=== PATIENT | male | born 1950 | race Caucasian/White ===

== ENCOUNTER → 2021-05-30 09:35 | Outpatient (BNVA) | payer MEDICARE, BC, SELFPAY | PROVIDERS: Visit Provider Urology | DX: C61 Malignant neoplasm of prostate (principal) | CPT/HCPCS: 99212 ==

== ENCOUNTER 2021-07-09 12:13 | Outpatient (REF) | payer MEDICARE, BC, SELFPAY ==
[2021-07-09 12:19] VITALS: BP 140/62; PULSE 93; RESP 16; TEMP 36.3; O2SAT 96
[2021-07-09 12:22] VITALS: BMI 36.3
--- NOTE | 2021-07-09 12:51 | W.PM.OPN ---
Operative Note Operative Note Date of Service: 07/09/21 Narrative: Preoperative diagnosis: prostate cancer Postoperative diagnosis: prostate cancer Procedure: 1. transrectal ultrasound measurement of prostate 2. transrectal ultrasound-guided pudendal nerve block 3. transrectal ultrasound-guided prostate biopsy 12 core Surgeon: Dr. Javid Smith Anesthetic: Local Indications for procedure: Prostate Cancer Procedure: After informed consent was verified, the patient was brought into the procedure area and lay left-hand side down on the table. Patient identity confirmed. Perioperative antibiotics confirmed. Gel was placed per rectum Ultrasound probe was placed per rectum The prostate was measured in 3 dimensions Total volume equals 25 gm There were no cystic structures and no calcifications noted and the prostate was homogeneous in nature A ultrasound-guided pudendal nerve block was performed using 10 cc of 1% lidocaine. 8 cc was placed at the base and 2 cc of the apex. A 12 core biopsy was performed with 6 cores each side. Two cores were taken at the apex, mid and base. Cores were spaced between lateral and medial. He tolerated the procedure well. Was able to ambulate to bathroom after 5 minutes. Printed instructions regarding antibiotic use and common side effects such as low-grade temperature and bleeding were given.
[2021-07-09 12:54] VITALS: BP 126/65; PULSE 77; RESP 16; O2SAT 96
== END 2021-07-09 12:14 | disposition home or self-care (01) ==
LOC: HO.MS 12:13
PROVIDERS: PCP Nurse Practitioner Family; Visit Provider Urology
PROC: (CPT 55700; principal; 2021-07-09 12:30)
DX: C61 Malignant neoplasm of prostate (principal); R97.20 Elevated prostate specific antigen [PSA]
CPT/HCPCS: 55700; 76942; 88305

== ENCOUNTER → 2021-07-16 14:02 | Outpatient (BNVA) | payer MEDICARE, BC, SELFPAY | PROVIDERS: PCP Nurse Practitioner Family; Visit Provider Urology | DX: C61 Malignant neoplasm of prostate (principal); R97.20 Elevated prostate specific antigen [PSA] | CPT/HCPCS: Q3014 ==

== ENCOUNTER → 2021-08-15 09:40 | Outpatient (BNVA) | payer MEDICARE, BC, SELFPAY | PROVIDERS: PCP Nurse Practitioner Family; Visit Provider Urology | DX: C61 Malignant neoplasm of prostate (principal) | CPT/HCPCS: 99212 ==

== ENCOUNTER → 2021-09-04 13:30 | Outpatient (BNVA) | payer MEDICARE, BC, SELFPAY | PROVIDERS: PCP Nurse Practitioner Family; Visit Provider Urology | DX: C61 Malignant neoplasm of prostate (principal) | CPT/HCPCS: 96402; J9217 ==

== ENCOUNTER 2021-09-23 08:51 | Day surgery (SDC) | payer MEDICARE, BC, SELFPAY ==
[2021-09-16 13:29] VITALS: BMI 36.3
--- NOTE | 2021-09-20 12:53 | P.CONAN_ITS ---
Documented by User: Tori Burnham NP 09/20/21 12:54 HPI - Anesthesia Eval Consult details Narrative: 70yo M for Insert Space OAR with Gold Seed Markers PMFSH Active Problems Active Problems: All Active Problems (Updated 09/16/21 @ 13:28 by Elis Mejia, RN) Elevated PSA (Acute) Prostate cancer (Acute) Past Medical History Medical History Alopecia totalis Anxiety Benign prostatic hyperplasia without lower urinary tract symptoms COVID-19 vaccine series completed Elevated cholesterol Elevated PSA Hypertension Prostate cancer Snores Surgical History Surgical History H/O colonoscopy History of total left knee replacement Hx of prostate biopsy Social History Social History Are you a primary palliative care coordinator to a significant other at home: No Do you presently have visiting nurse or other home services: No Patient Tobacco Use Status: Former Tobacco user Quit Date: 2005 Tobacco use type: Cigarette Years Smoked: 10 Use of substances other than those prescribed or required for medical reasons: No Have you been hit, kicked, punched, or otherwise hurt by someone within the past year? If so, by whom?: No Are you DNR?: No Advance Directives: Yes Advance Directives Information Provided: Yes (as above noted-will bring copy of HCP form DOS) Advance Directives on File: Yes Advance Directives Date on File: 09/23/21 Recently lost weight without trying: No Eating poorly because of decreased appetite: No Nutrition Risks: No Nutritional Risk Poor oral hygiene: No (has crowns) Meds Allergies Allergy/AdvReac Type Severity Reaction Status Date / Time No Known Allergies Allergy Verified 08/15/21 09:41 Home Medications Medication Instructions Recorded Confirmed Last Taken Type atorvastatin 10 mg tablet 10 mg PO DAILY 07/16/21 09/16/21 Unknown History citalopram 20 mg tablet 20 mg PO DAILY 07/16/21 09/16/21 09/23/21 History irbesartan 300 mg tablet 300 mg PO DAILY 07/16/21 09/16/21 Unknown History metoprolol succinate 50 mg 50 mg PO DAILY 07/16/21 09/16/21 09/23/21 History tablet,extended release 24 hr cetirizine 10 mg tablet 10 mg PO DAILY 09/16/21 09/16/21 Unknown History cholecalciferol (vitamin D3) 50 50 mcg PO DAILY 09/16/21 09/16/21 Unknown History mcg (2,000 unit) capsule (Vitamin D3) Exam Exam Date and Time: September 20, 2021 1253 Height,Weight and Vital Signs: Height 5 ft 6 in Weight 102.058 kg Assessment and Plan Assessment Anesthesia Assessment: Chart Reviewed Documented by User: Isabella Garces MD 09/23/21 10:07 [facility] Past Medical History Medical History Alopecia totalis Anxiety Benign prostatic hyperplasia without lower urinary tract symptoms COVID-19 vaccine series completed Elevated cholesterol Elevated PSA Hypertension Prostate cancer Snores Surgical History Surgical History H/O colonoscopy History of total left knee replacement Hx of prostate biopsy History of Problems with Anesthesia: No Social History Social History Are you a primary palliative care coordinator to a significant other at home: No Do you presently have visiting nurse or other home services: No Patient Tobacco Use Status: Former Tobacco user Quit Date: 2005 Tobacco use type: Cigarette Years Smoked: 10 Use of substances other than those prescribed or required for medical reasons: No Have you been hit, kicked, punched, or otherwise hurt by someone within the past year? If so, by whom?: No Are you DNR?: No Advance Directives: Yes Advance Directives Information Provided: Yes (as above noted-will bring copy of HCP form DOS) Advance Directives on File: Yes Advance Directives Date on File: 09/23/21 Recently lost weight without trying: No Eating poorly because of decreased appetite: No Nutrition Risks: No Nutritional Risk Poor oral hygiene: No (has crowns) Meds Allergies Allergy/AdvReac Type Severity Reaction Status Date / Time No Known Allergies Allergy Verified 08/15/21 09:41 Home Medications Medication Instructions Recorded Confirmed Last Taken Type atorvastatin 10 mg tablet 10 mg PO DAILY 07/16/21 09/16/21 Unknown History citalopram 20 mg tablet 20 mg PO DAILY 07/16/21 09/16/21 09/23/21 History irbesartan 300 mg tablet 300 mg PO DAILY 07/16/21 09/16/21 Unknown History metoprolol succinate 50 mg 50 mg PO DAILY 07/16/21 09/16/21 09/23/21 History tablet,extended release 24 hr cetirizine 10 mg tablet 10 mg PO DAILY 09/16/21 09/16/21 Unknown History cholecalciferol (vitamin D3) 50 50 mcg PO DAILY 09/16/21 09/16/21 Unknown History mcg (2,000 unit) capsule (Vitamin D3) Exam Airway Mallampati Class: III TM Dist: >3cm Neck ROM: Full Loose/Missing/Broken Teeth: No Heart: RRR Lungs: CTA Assessment and Plan Final Anesthetic Review History of Problems with Anesthesia: No NPO: Yes ASA Class: II Final Preanesthetic Review: Meds/Allgs Chart Reviewed, Consent Obtained/Reviewed and Anes Risks/Benef Reviewed Patient Risk: Low Procedure Risk: Low Anesthetic Plan Anesthetic Plan: GA Disposition: Standard PACU
[2021-09-23 08:52] VITALS: PULSE 54; RESP 18; TEMP 36.1; O2SAT 96
[2021-09-23 08:57] VITALS: BP 164/78
[2021-09-23] MEDS: Lactated Ringers 1,000 ML 100 ML IVCONT (09:09)
--- NOTE | 2021-09-23 13:47 | MHC.SHP ---
Pre-Procedural Eval Section A Date of Service: 09/23/21 The patient is an INPATIENT: No Changes since office visit: No Cold of Flu in the past 2 weeks, No New Medical Problems, No Changes in Medication and No Patient answered all questions The History & Physical has been completed within 30 days and I have reviewed it.: No Section B Chief Complaint: neoplasm of prostate Details of Present Illness: here for gold seed marker, SpaceOAR placement Relevant Family History (Specify if Yes): No Relevant Social History: None Present Medications: see Short Stay Collaborative assessment Medical History: No relevant PMH History of Previous Operations: Relevant previous surgery/procedure and date(s) Allergies: Allergies Allergy/AdvReac Type Severity Reaction Status Date / Time No Known Allergies Allergy Verified 08/15/21 09:41 Review of Systems Sugical H&P ROS: Negative: Constitution, Cardiovascular, Respiratory, Neurological, Psychiatric, Hem-Onc, Allergic/Immunologic, Gastrointestinal, Genitourinary, Musculoskeletal, Integumentary, Endocrine and Eyes/Ears/Nose/Throat Exam Surgical H&P Exam: Normal: HEENT, Normal: Heart, Normal: Lungs, Normal: Extremities, Normal: Abdomen, Normal: Skin and Normal: Neurological Plan Diagnosis/Plan: Unchanged ( transrectal guided space oar placement and gold seed marker) I have reviewed the history and physical and performed a pertinent physical examination on my patient. No changes have occurred unless specified.
[2021-09-23 15:06] VITALS: BP 158/86; PULSE 61; RESP 16; TEMP 36.3; O2SAT 97
[2021-09-23 15:10] VITALS: BP 166/87; PULSE 57; RESP 16; O2SAT 98
--- NOTE | 2021-09-23 15:12 | W.PM.OPN ---
Operative Note Operative Note Date of Service: 09/23/21 Narrative: Preoperative diagnosis: Prostate cancer Postoperative diagnosis: Prostate cancer Procedure: 1. Transrectal ultrasound-guided perineal gold seed placement 2. Treansrectal ultrasound-guided perineal SpaceOAR gel placement Surgeon: Dr. Javid Smith Anesthetic: Sedation Indications for procedure: Prostate Cancer Procedure: After informed consent was verified, the patient was brought into the operating room and anesthesia was performed per protocol. The patient was placed in a modified dorsal lithotomy position. Gel was placed per rectum Ultrasound probe was placed per rectum. The prostate was visualized in sagittal and transverse dimensions. Local anesthetic was infiltrated in the perineal area using 10 cc of lidocaine Gold seed markers were placed in a transperineal fashion using ultrasound guidance 3 gold seed markers placed in total. 2 on the right - 1 toward the base, the 2nd toward the apex. 1 on the left. The purpose is for triangulation. The 2nd part of the procedure was placement of SpaceOAR gel to allow consolidation for radiation delivery. The delivery needle was advanced bevel down in the midline under ultrasound guidance to the apex of the prostate. It was advanced in the plane the prostate from the rectum to the midpoint of the prostate. Location was determined using sagittal and transverse imaging. At the midpoint of the prostate 1 cc of saline was placed to confirm needle position. Second cc of saline was placed to confirm spread toward the base of the prostate. With the needle in the confirmed position 10 cc of gel mixture was injected. Good separation was seen of the rectum from the prostate space running in the midline from the base toward the apex of the prostate. Following completion of the procedure the probe was removed from the rectum. He tolerated the procedure well. He was extubated in the operating room and transferred in stable condition to the recovery area. Pathology none Drains none
[2021-09-23 15:15] VITALS: BP 175/85; PULSE 58; RESP 16; O2SAT 95
[2021-09-23 15:19] VITALS: BP 160/85; PULSE 57; RESP 16; TEMP 36.3; O2SAT 95
== END 2021-09-23 15:46 | disposition home or self-care (01) ==
PROVIDERS: PCP Nurse Practitioner Family; Visit Provider Urology
PROC: (CPT 55874; principal; 2021-09-23 11:40)
DX: C61 Malignant neoplasm of prostate (principal); R97.20 Elevated prostate specific antigen [PSA]; I10 Essential (primary) hypertension
CPT/HCPCS: 55874; 55876; A4648; C1889; J1956; J2405; J3010

== ENCOUNTER → 2021-12-31 14:42 | Outpatient (BNVA) | payer MEDICARE, BC, SELFPAY | PROVIDERS: PCP Nurse Practitioner Family; Visit Provider Urology | DX: C61 Malignant neoplasm of prostate (principal) | CPT/HCPCS: 99212 ==

== ENCOUNTER → 2022-04-08 10:48 | Outpatient (BNVA) | payer MEDICARE, BC, SELFPAY | PROVIDERS: PCP Internal Medicine; Visit Provider Urology | DX: C61 Malignant neoplasm of prostate (principal) | CPT/HCPCS: Q3014 ==

== ENCOUNTER → 2022-08-08 13:49 | Outpatient (BNVA) | payer MEDICARE, BC, SELFPAY | PROVIDERS: PCP Internal Medicine; Visit Provider Urology | DX: R97.21 Rising PSA following treatment for malignant neoplasm of prostate (principal) | CPT/HCPCS: Q3014 ==

== ENCOUNTER 2022-09-10 12:17 | Outpatient (REF) | payer MEDICARE, BC, SELFPAY ==
[2022-09-15 12:03] LABS: Testosterone, Total 175 ng/dL (250-1100)
== END 2022-09-10 12:18 | disposition home or self-care (01) ==
LOC: HO.LAB 12:17
PROVIDERS: Visit Provider Urology
DX: Z12.5 Encounter for screening for malignant neoplasm of prostate (principal); C61 Malignant neoplasm of prostate; R97.21 Rising PSA following treatment for malignant neoplasm of prostate
CPT/HCPCS: 36415; 84153; 84403; 99212

== ENCOUNTER → 2022-12-16 10:21 | Outpatient (BNVA) | payer MEDICARE, BC, SELFPAY | PROVIDERS: PCP Internal Medicine; Visit Provider Urology | DX: C61 Malignant neoplasm of prostate (principal) | CPT/HCPCS: 99212 ==

== ENCOUNTER → 2023-04-14 10:58 | Outpatient (BNVA) | payer MEDICARE, BC, SELFPAY | PROVIDERS: PCP Internal Medicine; Visit Provider Urology | DX: C61 Malignant neoplasm of prostate (principal) | CPT/HCPCS: Q3014 ==

== ENCOUNTER 2023-08-13 09:50 | Outpatient (AMB) | payer MEDICARE, BC, SELFPAY ==
--- NOTE | 2023-08-13 09:50 | MHC.OFFVIS ---
Intake Intake Visit Reasons: 4M PSA/Testosterone(set) Intake Note: Patient is Present for Telephone Follow Up For Urology Med: NONE Antibiotic Allergy:NKA Blood Thinner:NO Pharamcy:[facility] Allergies No Known Allergies Allergy (Verified 08/13/23 09:51) Medication List - Last Reconciled 08/13/23 by Javid Smith MD atorvastatin 10 mg PO DAILY cetirizine 10 mg PO DAILY cholecalciferol (vitamin D3) (Vitamin D3) 50 mcg PO DAILY citalopram 20 mg PO DAILY irbesartan 300 mg PO DAILY metoprolol succinate ER 50 mg PO DAILY metoprolol succinate ER 100 mg PO DAILY HPI HPI Comments History of Present Illness Details Dennis Mcdermott is a very pleasant male. He is a patient of Dr Espinoza. He is seen for the following urologic conditions. - prostate cancer Telemedicine Evaluation 15 min Consultation Doximity Brittany Video attempted PSA remaining low for 3nd reading. Off finasteride. Continue to follow q.4 months. PSA 05/22 7.1, 03/23 1.5, 07/24 1.9 T 153 (on finasteride), 11/24 0.9 T 100, 04/24 0.6, 08/24 0.7 T 151 08/23 Completed review with radiation oncology PSMA CT scan is associated with persistent positive activity 12-18 months after radiation. Prostate cancer:? Low volume, low risk June 2019 initial therapy active surveillance - June 2021 Grade Group 3 - initial therapy external beam radiation completed November 2021 [facility] radiation oncology with 6 month hormones Treatment - Initial therapy - EXBRT [facility] completed 11/23 with adjuvant hormones ? Prostate cancer was diagnosed?Dr Smith 06/20 rising PSA? Diagnosis was reached by?06/20 , needle biopsy, for elevated PSA, PSA at diagnosis 5.5, , size at TRUS 45gm.? The [place] grade is?June 2019 - LMB, 3+3 = 6 30%, LMM , 3+3 = 6 30%, LLA , 3+3 = 6 5%, RMM, 3+3 = 6 10%, Total volume .? TNM Classification of Malignant Tumours (TNM)?T1c.? The [place] (NCCN) risk category is?Low Risk (PSA< 10, Gl < 7, T1c) ?Group 1 with ultralow risk volume Repeat biopsy June 2021 Histologic type: Adenocarcinoma, acinar type Histologic grade: [place] score: 4+3=7 (left base medial, right apex lateral, right apex medial), 3+4=7 (left mid medial), 3+3=6 (right base lateral, right base medial, right mid lateral, right mid medial) ? % of pattern 4: 15% of the tumor - 140/1200 Grade group: 1, 2, 3 and 4 Imaging staging. 08/22 MRI left base 1.5 cm PiRADS 5 - 08/23 PET-CT [facility] - left base prostate uptake otherwise negative [facility] Medical History Prostate cancer Anxiety Snores COVID-19 vaccine series completed Elevated cholesterol Alopecia totalis Benign prostatic hyperplasia without lower urinary tract symptoms Elevated PSA Hypertension Surgical History History of total left knee replacement H/O colonoscopy Hx of prostate biopsy Social History Are you a primary career advisor to a significant other at home: No Do you presently have visiting nurse or other home services: No Patient Tobacco Use Status: Former Tobacco user Quit Date: 2005 Tobacco use type: Cigarette Years Smoked: 10 Advance Directives Date on File: 09/23/21 Review of Systems Const All systems reviewed & are unremarkable except as noted in HPI and below Reports no additional complaints Resp Reports no additional complaints GI Reports no additional complaints Reports as per HPI Musc Reports no additional complaints Physical Exam Telemedicine evaluation Appropriate responses Regular breathing rate and rhythm HEENT Head: Yes normal to inspection Ears: hearing grossly normal bilaterally Eyes General: appearance normal, both eyes and all related structures Neck Neck: Yes normal visual inspection Chest Chest palpation & inspection: normal inspection of the chest Resp Effort & Inspection: normal respiratory effort and able to speak in complete sentences Assessment & Plan Assessment & Plan (1) Prostate cancer: Comment: [place] 4 + 3 external beam radiation with 6 month hormones completed November 2021 Code(s): C61 - Malignant neoplasm of prostate Plan 4m f/u PSA Orders: Orders Prostate Specific Antigen 4 Months R97.21 - Rising PSA following treatment for malignant neoplasm of prostate Patient Instructions: Imaging studies, laboratory and physical exam results were discussed and reviewed in detail. No major barriers to patient understanding were identified. An opportunity to ask questions regarding the treatment plan was provided. All questions were answered. The patient expressed understanding and agreement with the above treatment plan. The patient is aware they should contact our office by phone for worsening of their current condition or the appearance of new urologic symptoms. Compliance is encouraged with any medications and followup testing that is ordered. It is a privilege to participate in the urologic care of your patient. If you have any questions or concerns regarding treatment for the above conditions, or other urologic issues, please do not hesitate to contact me. The office telephone contact is [phone]. This note is constructed using voice recognition software. While every effort has been made to ensure accuracy accountant budget errors may have been included. Yours sincerely, Dr Javid Smith MD, [facility] - Urology Providers of Expert, Compassionate Care for the Genitourinary System Telehealth Telehealth Location of provider rendering services: practice address Location of patient: address on file Patient Identification confirmed using: Name, : Yes Telehealth method: video Patient verbally consented to treatment: Yes Patient verbally consented to billing insurance company: Yes Patient informed of any privacy concerns related to visit: Yes Coding Level of Care Code Tele Est Pt Level 3 (35992) Diagnoses Prostate cancer C61
== END 2023-08-13 10:20 | disposition home or self-care (01) ==
LOC: HO.HUSH 09:50
PROVIDERS: PCP Internal Medicine; Visit Provider Urology
DX: C61 Malignant neoplasm of prostate (principal)
CPT/HCPCS: 99213

== ENCOUNTER → 2023-08-13 09:50 | Outpatient (BNVA) | payer MEDICARE, BC, SELFPAY | PROVIDERS: PCP Internal Medicine; Visit Provider Urology ==

== ENCOUNTER 2024-01-19 15:21 | Outpatient (AMB) | payer MEDICARE, BC, SELFPAY ==
--- NOTE | 2024-01-19 15:30 | A.OFFVIS_ITS ---
Intake Visit Reasons: 4M PSA(set) Intake Note: Patient is Present for Follow Up Urology Medication: None Antibiotic Allergies: None Blood Thinners:None Allergies No Known Allergies Allergy (Verified 08/13/23 09:51) HPI Comments Details: Dennis Mcdermott is a very pleasant male. He is a patient of Dr Espinoza. He is seen for the following urologic conditions. - prostate cancer PSA continues falling Continue Q 4 month evaluation PSA 05/22 7.1, 03/23 1.5, 07/24 1.9 T 153 (on finasteride), 11/24 0.9 T 100, 04/24 0.6, 08/24 0.7 T 151, 12/26 0.5 08/23 Completed review with radiation oncology PSMA CT scan is associated with persistent positive activity 12-18 months after radiation. Prostate cancer:? Low volume, low risk June 2019 initial therapy active surveillance - June 2021 Grade Group 3 - initial therapy external beam radiation completed November 2021 [facility] radiation oncology with 6 month hormones Treatment - Initial therapy - EXBRT [facility] completed 11/23 with adjuvant hormones ? Prostate cancer was diagnosed?Dr Smith 06/20 rising PSA? Diagnosis was reached by?06/20 , needle biopsy, for elevated PSA, PSA at diagnosis 5.5, , size at TRUS 45gm.? The [place] grade is?June 2019 - LMB, 3+3 = 6 30%, LMM , 3+3 = 6 30%, LLA , 3+3 = 6 5%, RMM, 3+3 = 6 10%, Total volume .? TNM Classification of Malignant Tumours (TNM)?T1c.? The [place] (NCCN) risk category is?Low Risk (PSA< 10, Gl < 7, T1c) ?Group 1 with ultralow risk volume Repeat biopsy June 2021 Histologic type: Adenocarcinoma, acinar type Histologic grade: Artemio score: 4+3=7 (left base medial, right apex lateral, right apex medial), 3+4=7 (left mid medial), 3+3=6 (right base lateral, right base medial, right mid lateral, right mid medial) ? % of pattern 4: 15% of the tumor - 140/1200 Grade group: 1, 2, 3 and 4 Imaging staging. 08/22 MRI left base 1.5 cm PiRADS 5 - 08/23 PET-CT [facility] - left base prostate uptake otherwise negative [facility] Medical History Prostate cancer Anxiety Snores COVID-19 vaccine series completed Elevated cholesterol Alopecia totalis Benign prostatic hyperplasia without lower urinary tract symptoms Elevated PSA Hypertension Surgical History History of total left knee replacement H/O colonoscopy Hx of prostate biopsy Social History Are you a primary assistant child care teacher to a significant other at home: No Do you presently have visiting nurse or other home services: No Patient Tobacco Use Status: Former Tobacco user Quit Date: 2005 Tobacco use type: Cigarette Years Smoked: 10 Advance Directives Date on File: 09/23/21 Review of Systems Const Denies chills and Denies fever(s) Card Reports no additional complaints and Denies syncope Resp Denies cough GI Denies abdominal pain and Denies heartburn Reports as per HPI and Denies change in libido Neuro Denies syncope Psych Denies change in libido Endo Denies change in libido Physical Exam Const General: cooperative, healthy appearing, comfortable and no acute distress Orientation/consciousness: patient oriented x3 HEENT Face and sinus: Yes normal facial exam Mouth: moist mucous membranes Neck Neck: Yes normal visual inspection, Yes full ROM and Yes trachea midline Chest Chest palpation & inspection: normal inspection of the chest Resp Effort & Inspection: normal respiratory effort, able to speak in complete sentences and no respiratory distress GI Inspection: Yes normal to inspection Back/Spine/Pelvis Cervical Spine: normal cervical lordosis Thoracic/Lumbar Spine: thoracic and lumbar spine normal to inspection Skin General skin exam: no rashes or lesions noted Neuro General: patient oriented x3, gait normal, tone normal and moves all extremities Extrem General: Yes normal to inspection and Yes capillary refill normal Assessment & Plan Assessment & Plan (1) Prostate cancer: Comment: [place] 4 + 3 external beam radiation with 6 month hormones completed November 2021 Code(s): C61 - Malignant neoplasm of prostate Category: Medical Plan 4 month follow-up Orders: Orders Prostate Specific Antigen 4 Months C61 - Malignant neoplasm of prostate Patient Instructions: Imaging studies, laboratory and physical exam results were discussed and reviewed in detail. No major barriers to patient understanding were identified. An opportunity to ask questions regarding the treatment plan was provided. All questions were answered. The patient expressed understanding and agreement with the above treatment plan. The patient is aware they should contact our office by phone for worsening of their current condition or the appearance of new urologic symptoms. Compliance is encouraged with any medications and followup testing that is ordered. It is a privilege to participate in the urologic care of your patient. If you have any questions or concerns regarding treatment for the above conditions, or other urologic issues, please do not hesitate to contact me. The office telephone contact is [phone]. This note is constructed using voice recognition software. While every effort has been made to ensure accuracy sand cutter operator errors may have been included. Yours sincerely, Dr Javid Smith MD, [facility] - Urology Providers of Expert, Compassionate Care for the Genitourinary System
== END 2024-01-19 16:06 | disposition home or self-care (01) ==
PROVIDERS: PCP Internal Medicine; Visit Provider Urology
DX: C61 Malignant neoplasm of prostate (principal)
CPT/HCPCS: 99213

== ENCOUNTER → 2024-01-19 15:21 | Outpatient (BNVA) | payer MEDICARE, BC, SELFPAY | PROVIDERS: PCP Internal Medicine; Visit Provider Urology | DX: C61 Malignant neoplasm of prostate (principal); N40.0 Benign prostatic hyperplasia without lower urinary tract symptoms; R97.20 Elevated prostate specific antigen [PSA]; Z92.3 Personal history of irradiation | CPT/HCPCS: 99212 ==

== ENCOUNTER 2024-05-17 11:40 | Outpatient (AMB) | payer MEDICARE, BC, SELFPAY ==
--- NOTE | 2024-05-17 11:40 | MHC.OFFVIS ---
Intake Visit Reasons: 4M PSA(set) Intake Note: Patient is Present for Telephone Follow Up PSA Urology Med:None Antibiotic Allergy: None Blood Thinner: None Allergies No Known Allergies Allergy (Verified 05/17/24 11:41) Medication List - Last Reconciled 05/17/24 by Javid Smith MD atorvastatin 10 mg PO DAILY cetirizine 10 mg PO DAILY cholecalciferol (vitamin D3) (Vitamin D3) 50 mcg PO DAILY citalopram 20 mg PO DAILY irbesartan 300 mg PO DAILY metoprolol succinate ER 50 mg PO DAILY metoprolol succinate ER 100 mg PO DAILY HPI Comments Details: Dennis Mcdermott is a very pleasant male. He is a patient of Dr Espinoza. He is seen for the following urologic conditions. - prostate cancer Telemedicine Evaluation 15 min Consultation Doximity Brittany Video PSA continues falling Six-month follow-up Mild urgency PSA 05/22 7.1, 03/23 1.5, 07/24 1.9 T 153 (on finasteride), 11/24 0.9 T 100, 04/24 0.6, 08/24 0.7 T 151, 12/26 0.5, 05/25 0.3 08/23 Completed review with radiation oncology PSMA CT scan is associated with persistent positive activity 12-18 months after radiation. Prostate cancer:? Low volume, low risk June 2019 initial therapy active surveillance - June 2021 Grade Group 3 - initial therapy external beam radiation completed November 2021 [facility] radiation oncology with 6 month hormones Treatment - Initial therapy - EXBRT [facility] completed 11/23 with adjuvant hormones ? Prostate cancer was diagnosed?Dr Smith 06/20 rising PSA? Diagnosis was reached by?06/20 , needle biopsy, for elevated PSA, PSA at diagnosis 5.5, , size at TRUS 45gm.? The [place] grade is?June 2019 - LMB, 3+3 = 6 30%, LMM , 3+3 = 6 30%, LLA , 3+3 = 6 5%, RMM, 3+3 = 6 10%, Total volume .? TNM Classification of Malignant Tumours (TNM)?T1c.? The [place] (NCCN) risk category is?Low Risk (PSA< 10, Gl < 7, T1c) ?Group 1 with ultralow risk volume Repeat biopsy June 2021 Histologic type: Adenocarcinoma, acinar type Histologic grade: Artemio score: 4+3=7 (left base medial, right apex lateral, right apex medial), 3+4=7 (left mid medial), 3+3=6 (right base lateral, right base medial, right mid lateral, right mid medial) ? % of pattern 4: 15% of the tumor - 140/1200 Grade group: 1, 2, 3 and 4 Imaging staging. 08/22 MRI left base 1.5 cm PiRADS 5 - 08/23 PET-CT PSMA - left base prostate uptake otherwise negative PFS Medical History Prostate cancer Anxiety Snores COVID-19 vaccine series completed Elevated cholesterol Alopecia totalis Benign prostatic hyperplasia without lower urinary tract symptoms Elevated PSA Hypertension Surgical History History of total left knee replacement H/O colonoscopy Hx of prostate biopsy Social History Are you a primary customer care associate to a significant other at home: No Do you presently have visiting nurse or other home services: No Patient Tobacco Use Status: Former Tobacco user Tobacco use type: Cigarette Years Smoked: 10 Advance Directives Date on File: 09/23/21 Review of Systems Const All systems reviewed & are unremarkable except as noted in HPI and below Reports no additional complaints Resp Reports no additional complaints GI Reports no additional complaints Reports as per HPI Musc Reports no additional complaints Physical Exam Telemedicine evaluation Appropriate responses Regular breathing rate and rhythm HEENT Head: Yes normal to inspection Ears: hearing grossly normal bilaterally Eyes General: appearance normal, both eyes and all related structures Neck Neck: Yes normal visual inspection Chest Chest palpation & inspection: normal inspection of the chest Resp Effort & Inspection: normal respiratory effort and able to speak in complete sentences Telehealth Telehealth Location of provider rendering services: practice address Location of patient: address on file Patient Identification confirmed using: Name, : Yes Telehealth method: video Patient verbally consented to treatment: Yes Patient verbally consented to billing insurance company: Yes Patient informed of any privacy concerns related to visit: Yes Assessment & Plan Assessment & Plan (1) Prostate cancer: Comment: Artemio 4 + 3 external beam radiation with 6 month hormones completed November 2021 Code(s): C61 - Malignant neoplasm of prostate Category: Medical Plan Six-month follow-up PSA Orders: Orders Prostate Specific Antigen 6 Months R97.21 - Rising PSA following treatment for malignant neoplasm of prostate Patient Instructions: Imaging studies, laboratory and physical exam results were discussed and reviewed in detail. No major barriers to patient understanding were identified. An opportunity to ask questions regarding the treatment plan was provided. All questions were answered. The patient expressed understanding and agreement with the above treatment plan. The patient is aware they should contact our office by phone for worsening of their current condition or the appearance of new urologic symptoms. Compliance is encouraged with any medications and followup testing that is ordered. It is a privilege to participate in the urologic care of your patient. If you have any questions or concerns regarding treatment for the above conditions, or other urologic issues, please do not hesitate to contact me. The office telephone contact is [phone]. This note is constructed using voice recognition software. While every effort has been made to ensure accuracy health and safety technician errors may have been included. Yours sincerely, Dr Javid Smith MD, HANNY [facility] - Urology Providers of Expert, Compassionate Care for the Genitourinary System Coding Level of Care Code Tele Est Pt Level 3 (43948) Diagnoses Prostate cancer C61
== END 2024-05-17 12:52 | disposition home or self-care (01) ==
LOC: HO.HUSH 11:40
PROVIDERS: PCP Internal Medicine; Visit Provider Urology
DX: C61 Malignant neoplasm of prostate (principal)
CPT/HCPCS: 99213

== ENCOUNTER → 2024-05-17 11:40 | Outpatient (BNVA) | payer MEDICARE, BC, SELFPAY | PROVIDERS: PCP Internal Medicine; Visit Provider Urology ==

== ENCOUNTER 2024-12-20 10:20 | Outpatient (AMB) | payer MEDICARE, BC, SELFPAY ==
--- NOTE | 2024-12-20 10:32 | A.OFFVIS_ITS ---
Intake Visit Reasons: 6m/PSA(set) Intake Note: Patient presents today for follow up on: psa results Urology Med:None Antibiotic Allergy: None Blood Thinner: None Sample Sewer Required: No Accompanied by: Unknown Allergies No Known Allergies Allergy (Verified 12/20/24 10:43) HPI Comments Details: Dennis Mcdermott is a very pleasant male. He is a patient of Dr Espinoza. He is seen for the following urologic conditions. - prostate cancer PSA showing good biochemical control Interval surveillance q.6 months for 5 years Minimal urgency Good urinary control PSA 05/22 7.1, 03/23 1.5, 07/24 1.9 T 153 (on finasteride), 11/24 0.9 T 100, 04/24 0.6, 08/24 0.7 T 151, 12/26 0.5, 05/25 0.3, 12/[address] scan is associated with persistent positive activity 12-18 months after radiation. Prostate cancer:? Low volume, low risk June 2019 initial therapy active surveillance - June 2021 Grade Group 3 - initial therapy external beam radiation completed November 2021 [facility] radiation oncology with 6 month hormones Treatment - Initial therapy - EXBRT [facility] completed 11/23 with adjuvant hormones ? Prostate cancer was diagnosed?Dr Smith 06/20 rising PSA? Diagnosis was reached by?06/20 , needle biopsy, for elevated PSA, PSA at diagnosis 5.5, , size at TRUS 45gm.? The Artemio grade is?June 2019 - LMB, 3+3 = 6 30%, LMM , 3+3 = 6 30%, LLA , 3+3 = 6 5%, RMM, 3+3 = 6 10%, Total volume .? TNM Classification of Malignant Tumours (TNM)?T1c.? The [place] (NCCN) risk category is?Low Risk (PSA< 10, Gl < 7, T1c) ?Group 1 with ultralow risk volume Repeat biopsy June 2021 Histologic type: Adenocarcinoma, acinar type Histologic grade: [place] score: 4+3=7 (left base medial, right apex lateral, right apex medial), 3+4=7 (left mid medial), 3+3=6 (right base lateral, right base medial, right mid lateral, right mid medial) ? % of pattern 4: 15% of the tumor - 140/1200 Grade group: 1, 2, 3 and 4 Imaging staging. 08/22 MRI left base 1.5 cm PiRADS 5 - 08/23 PET-CT PSMA - left base prostate uptake otherwise negative [facility] Medical History (Updated 12/20/24 @ 10:52 by Javid Smith MD) Rising PSA following treatment for malignant neoplasm of prostate Prostate cancer Anxiety Snores COVID-19 vaccine series completed Elevated cholesterol Alopecia totalis Benign prostatic hyperplasia without lower urinary tract symptoms Elevated PSA Hypertension Surgical History History of total left knee replacement H/O colonoscopy Hx of prostate biopsy Social History Are you a primary child care center assistant director to a significant other at home: No Do you presently have visiting nurse or other home services: No Patient Tobacco Use Status: Former Tobacco user Tobacco use type: Cigarette Years Smoked: 10 Advance Directives Date on File: 09/23/21 Review of Systems Const Denies chills and Denies fever(s) Card Reports no additional complaints and Denies syncope Resp Denies cough GI Denies abdominal pain and Denies heartburn Reports as per HPI and Denies change in libido Neuro Denies syncope Psych Denies change in libido Endo Denies change in libido Physical Exam Const General: cooperative, healthy appearing, comfortable and no acute distress Orientation/consciousness: patient oriented x3 HEENT Face and sinus: Yes normal facial exam Mouth: moist mucous membranes Neck Neck: Yes normal visual inspection, Yes full ROM and Yes trachea midline Chest Chest palpation & inspection: normal inspection of the chest Resp Effort & Inspection: normal respiratory effort, able to speak in complete sentences and no respiratory distress GI Inspection: Yes normal to inspection Back/Spine/Pelvis Cervical Spine: normal cervical lordosis Thoracic/Lumbar Spine: thoracic and lumbar spine normal to inspection Skin General skin exam: no rashes or lesions noted Neuro General: patient oriented x3, gait normal, tone normal and moves all extremities Extrem General: Yes normal to inspection and Yes capillary refill normal Assessment & Plan Assessment & Plan (1) Prostate cancer: Comment: Artemio 4 + 3 external beam radiation with 6 month hormones completed November 2021 Code(s): C61 - Malignant neoplasm of prostate Category: Medical Plan Six-month follow-up PSA tele Orders: Orders Prostate Specific Antigen 6 Months C61 - Malignant neoplasm of prostate Patient Instructions: This note is constructed using voice recognition software. While every effort has been made to ensure accuracy paper finisher errors may have been included. Imaging studies, laboratory and physical exam results were discussed and reviewed in detail. No major barriers to patient understanding were identified. An opportunity to ask questions regarding the treatment plan was provided. All questions were answered. The patient expressed understanding and agreement with the above treatment plan. The patient is aware they should contact our office by phone for worsening of their current condition or the appearance of new urologic symptoms. Compliance is encouraged with any medications and followup testing that is ordered. It is a privilege to participate in the urologic care of your patient. If you have any questions or concerns regarding treatment for the above conditions, or other urologic issues, please do not hesitate to contact me. The office telephone contact is [phone]. Sincerely, Dr Javid Smith MD, HANNY [facility] - Urology Compassionate Specialist Care for the Genitourinary System Coding Level of Care Code Est Pt Level 3 (92452) Complex EM visit Add On G2211 Diagnoses Prostate cancer C61
--- OUTSIDE RECORDS SUMMARY | 2024-12-20 11:19 | XMS_ITS | Encounter Summary ---
Author Organization [facility] Address [address] [place] [address] Care Team Providers Care Research And Insights Executive Name Role Phone Joana Negro MD Unavailable Jennie Flores RN Unavailable [phone] [facility], Hans Garcia MD Unavailable [phone] Joana Negro MD Primary Care Provider [phone] Harshad Espinoza MD Primary Care Provider Encounter Details Date Type Department Care Team (Late st Contact Info) Description 10/18/2018 Scanned Document [facility] 85 [facility] [address] [place] [address] Ibeth Arellano, DANIELITO 85 [facility] [address] [place] [address] Social History Tobacco Use Types Packs/Day Years Used Date Smoking Tobacco: Former Smokeless Tobacco: Never Alcohol Use Standard Drinks/Week Comments Yes 3 (1 standard drink = 0.6 oz pur e alcohol) daily ETOH, 3-4 shots Sex and Gender Information Value Date Recorded Sex Assigned at Male 08/11/2024 10:06 AM EDT Gender Identity Male 08/11/2024 10:06 AM EDT Sexual Orientation Heterosexual (straight) 08/11 10:06 AM EDT documented as of this encounter Plan of Treatment Not on file documented as of this encounter Visit Diagnoses Not on filedocumented in this encounter Care Teams Research And Insights Executive Relationship Specialty Start Date End Date Joana Negro MD [address] [place] [address] PCP - General 05/24/19 04/06/22 Harshad Espinoza MD [address] [place] [address] PCP - General Internal Medicine 04/07/22 Joana Negro MD [address] [facility]?? [address] [place] [address] 08/25/18 Jennie Flores, RN [address] [place] [address] Registered Nurse 09/09/18 [facility] [address] [address] Hepatology 09/09/18 documented as of this encounter
--- OUTSIDE RECORDS SUMMARY | 2024-12-20 11:19 | XMS_ITS ---
Author Name [facility] Organization Unknown History of Medication Use Medication Directions Dispensed Refills Start Date End Date Stat us finasteride (PROSCAR) 5 MG tablet Take 5 mg by mouth daily. active metoPROLOL TARTRATE (LOPRESSOR) 100 MG tablet Take 100 mg by mouth 2 (two) times a day. active atorvastatin (LIPITOR) 10 MG tablet Take 1 tablet (10 mg total) by mouth. 02/19/2022 08/24/2023 aborted irbesartan (AVAPRO) 300 MG tablet Take 300 mg by mouth daily. active metoPROLOL SUCCINATE (TOPROL-XL) 100 MG 24 hr tablet Take 1 tablet (100 mg total) by mouth. 01/06/2022 08/24/2023 aborted Problems Problem Status Onset Date Problem Type Date of Resoluti on Source Elevated LFTs active 2018-12-06 ProblemAct [facility] T Immunizations Vaccine Date Source Lot Number Status Hepatitis B Adjuvanted, 2 Dose 09/30/2022 [facility] [id number] completed Hepatitis B Adjuvanted, 2 Dose 08/25/2022 [facility] [id number] completed
--- OUTSIDE RECORDS SUMMARY | 2024-12-20 11:19 | XMS_ITS | Encounter Summary ---
Author Organization [facility] Address [address] [place] [address] Care Team Providers Care Steam Plant Control Room Operator Name Role Phone Joana Negro MD Unavailable Jennie Flores RN Unavailable [phone] [facility], Hans Garcia MD Unavailable [phone] Harshad Espinoza MD Primary Care Provider [phone] Encounter Details Date Type Department Care Team (Late st Contact Info) Description 04/08/2022 Scanned Document [facility] [address] [facility] [address] [place] [address] Provider, Tay, [address] [place] [address] Social History Tobacco Use Types Packs/Day Years [...] Orientation Heterosexual (straight) 08/11 10:06 AM EDT COVID-19 Exposure Response Date Recorded In the last 10 days, have yo u been in contact with someone who was confirmed or suspected to have Coronavirus/COVID-19? No / Unsure 04/07/2022 11:28 AM EDT documented as of this encounter Plan of Treatment Not on file documented as of this encounter Visit Diagnoses Not on filedocumented in this encounter Care Teams Steam Plant Control Room Operator Relationship Specialty Start Date End Date Harshad Espinoza MD [address] [place] [address] PCP - General Internal Medicine 04/07/22 Joana Negro MD [address] [place] [address]?? [address] [place] [address] 08/25/18 Jennie Flores, RN [address] [place] [address] Registered Nurse 09/09/18 [facility] [address] [address] Hepatology 09/09/18 documented as of this encounter
--- OUTSIDE RECORDS SUMMARY | 2024-12-20 11:19 | XMS_ITS | Encounter Summary ---
Author Organization [facility] Address [address] [place] [address] Care Team Providers Care Crushing Foreman Name Role Phone Joana Negro MD Unavailable Jennie Flores RN Unavailable [phone] [facility], Hans Garcia MD Unavailable [phone] Joana Negro MD Primary Care Provider [phone] Harshad Espinoza MD Primary Care Provider Reason for Visit * Reason Comments Appointment Encounter Details Date Type Department Care Team ([facility] st Contact Info) Description 08/28/2020 Telephone [facility] [address] [address] Kacie Montaño MA [address] [id number] Appointment Social History Tobacco Use Types Packs/Day Years [...] AM EDT documented as of this encounter Miscellaneous Notes * Telephone Encounter - Kacie Montaño MA - 08/28/2020 1:31 PM EDT Patient's called to let us know that she canceled her husbands appointment on 09/03 due to increase COVID 19 cases they don't feel comfortable going places , she will call us when he is ready to be seen. If you have further questions , please call them at [phone] documented in this encounter Plan of Treatment Not on file documented as of this encounter Visit Diagnoses Not on filedocumented in this encounter Care Teams Crushing Foreman Relationship Specialty Start Date End Date Joana Negro MD [address] [place] [address]?? [address] [place] [address] PCP - General 05/24/19 04/06/22 Harshad Espinoza MD [address] [place] [address] PCP - General Internal Medicine 04/07/22 Joana Negro MD [address] [place] [address]?? [address] [place] [address] 08/25/18 Jennie Flores RN [address] [place] [address] Registered Nurse 09/09/18 [facility] [address] [address] Hepatology 09/09/18 documented as of this encounter
--- OUTSIDE RECORDS SUMMARY | 2024-12-20 11:19 | XMS_ITS | Encounter Summary ---
Author Organization [facility] Address [address] [place] [address] Care Team Providers Care Returned Materials Inspector Name Role Phone Joana Negro MD Unavailable Jennie Flores RN Unavailable [phone] [facility], Hans Garcia MD Unavailable [phone] Joana Negro MD Primary Care Provider [phone] Harshad Espinoza MD Primary Care Provider Encounter Details Date Type Department Care Team (Late st Contact Info) Description 10/07/2018 Telephone [facility] [address] [address] Monika [place], [place] 85 [place] [address] Social History Tobacco Use Types Packs/Day Years [...] on filedocumented in this encounter Care Teams Returned Materials Inspector Relationship Specialty Start Date End Date Joana Negro MD [address] [place] [address] PCP - General 05/24/19 04/06/22 Harshad Espinoza MD [address] [place] [address] PCP - General Internal Medicine 04/07/22 Joana Negro MD 701 [facility]?? [address] [place] [address] 08/25/18 Jennie Flores, RN [address] [place] [address] Registered Nurse 09/09/18 [facility] [address] [address] Hepatology 09/09/18 documented as of this encounter
--- OUTSIDE RECORDS SUMMARY | 2024-12-20 11:19 | XMS_ITS | Encounter Summary ---
Author Organization [facility] Address [address] [place] [address] Care Team Providers Care Bellhop Captain Name Role Phone Joana Negro MD Unavailable Jennie Flores RN Unavailable [phone] Hans hoover MD Unavailable [phone] Joana Negro MD Primary Care Provider [phone] Harshad Espinoza MD Primary Care Provider Encounter Details Date Type Department Care Team (Late st Contact Info) Description 08/11/2019 Scanned Document [facility] 85 [facility] [address] [place] [address] Hans Luna MD [address] [address] Social History Tobacco Use Types Packs/Day Years [...] on filedocumented in this encounter Care Teams Bellhop Captain Relationship Specialty Start Date End Date Joana Negro MD [address] [place] [address] PCP - General 05/24/19 04/06/22 Harshad Espinoza MD [address] [place] [address] PCP - General Internal Medicine 04/07/22 Joana Negro MD 701 [facility]?? [address] [place] [address] 08/25/18 Jennie Flores, RN [address] [place] [address] Registered Nurse 09/09/18 [facility] [address] [address] Hepatology 09/09/18 documented as of this encounter
--- OUTSIDE RECORDS SUMMARY | 2024-12-20 11:19 | XMS_ITS | Encounter Summary ---
Author Organization [facility] Address [address] [place] [address] Care Team Providers Care General Merchandise Manager Name Role Phone Joana Negro MD Unavailable Jennie Flores RN Unavailable [phone] [facility], Hans Garcia MD Unavailable [phone] Joana Negro MD Primary Care Provider [phone] Harshad Espinoza MD Primary Care Provider Encounter Details Date Type Department Care Team (Late st Contact Info) Description 08/26/2018 Scanned Document [facility] [address] [place] [phone] Maria E [place], [place] [address] [phone] Social History Tobacco Use Types Packs/Day Years [...] on filedocumented in this encounter Care Teams General Merchandise Manager Relationship Specialty Start Date End Date Joana Negro MD [address] [place] [address] PCP - General 05/24/19 04/06/22 Harshad Espinoza MD [address] [place] [address] PCP - General Internal Medicine 04/07/22 Joana Ngero MD [address] [place] [address] 08/25/18 Jennie Flores, RN [address] [place] [address] Registered Nurse 09/09/18 [facility] [address] [address] Hepatology 09/09/18 documented as of this encounter
--- OUTSIDE RECORDS SUMMARY | 2024-12-20 11:19 | XMS_ITS | Encounter Summary ---
Author Organization [facility] Address [address] [place] [address] Care Team Providers Care Board Handler Name Role Phone Joana Negro MD Unavailable Jennie Flores RN Unavailable [phone] [facility], Hans Garcia MD Unavailable [phone] Harshad Espinoza MD Primary Care Provider Encounter Details Date Type Department Care Team (Late st Contact Info) Description 08/25/2023 Scanned Document [facility] [address] [address] Emily Gonzalez [place] [address] [phone] Social History Tobacco Use Types Packs/Day Years [...] on filedocumented in this encounter Care Teams Board Handler Relationship Specialty Start Date End Date Harshad Espinoza MD [address] [place] [address] PCP - General Internal Medicine 04/07/22 Joana Negro MD [address] [place] [address]?? [address] [place] [address] 08/25/18 Jennie Flores RN [address] [place] [address] Registered Nurse 09/09/18 [facility], Hans Garcia MD [address] [address] Hepatology 09/09/18 documented as of this encounter
--- OUTSIDE RECORDS SUMMARY | 2024-12-20 11:19 | XMS_ITS | Encounter Summary ---
Author Organization [facility] Address [address] [place] [address] Care Team Providers Care Weight Loss Physician Name Role Phone Joana Negro MD Unavailable Jennie Flores RN Unavailable [phone] [facility], Hans Garcia MD Unavailable [phone] Joana Negro MD Primary Care Provider [phone] Harshad Espinoza MD Primary Care Provider Encounter Details Date Type Department Care Team (Late st Contact Info) Description 09/07/2018 Scanned Document [facility] 85 [facility] [address] [place] [address] Ibeth Arellano, DANIELITO 85 [facility] [address] [place] [address] Social History Tobacco Use Types Packs/Day Years [...] on filedocumented in this encounter Care Teams Weight Loss Physician Relationship Specialty Start Date End Date Joana Negro MD [address] [place] [address] PCP - General 05/24/19 04/06/22 Harshad Espinoza MD [address] [place] [address] PCP - General Internal Medicine 04/07/22 Joana Negro MD [address] [facility] [place] [address] 08/25/18 Jennie Flores, RN [address] [place] [address] Registered Nurse 09/09/18 [facility] [address] [address] Hepatology 09/09/18 documented as of this encounter
== END 2024-12-20 10:56 | disposition home or self-care (01) ==
PROVIDERS: PCP Internal Medicine; Visit Provider Urology
DX: C61 Malignant neoplasm of prostate (principal)
CPT/HCPCS: 99213; G2211

== ENCOUNTER → 2024-12-20 10:20 | Outpatient (BNVA) | payer MEDICARE, BC, SELFPAY | PROVIDERS: PCP Internal Medicine; Visit Provider Urology | DX: C61 Malignant neoplasm of prostate (principal) | CPT/HCPCS: 99212 ==

== ENCOUNTER 2025-06-20 10:13 | Outpatient (AMB) | payer MEDICARE, BC, SELFPAY ==
--- NOTE | 2025-06-20 10:13 | A.OFFVIS_ITS ---
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 He is a patient of Dr Diego. He is seen for the following urologic conditions. - prostate cancer Telemedicine Evaluation 15 min Consultation [employer] Brittany Video PSA showing good biochemical control Interval surveillance q.6 months for 5 years Minimal urgency Good urinary control PSA 05/22 7.1, 03/23 1.5, 07/24 1.9 T 153 (on finasteride), 11/24 0.9 T 100, 04/24 0.6, 08/24 0.7 T 151, 12/26 0.5, 05/25 0.3, 12/27 0.4, 06/[address] scan is associated with persistent positive activity 12-18 months after radiation. Prostate cancer:? Low volume, low risk June 2019 initial therapy active surveillance - June 2021 Grade Group 3 - initial therapy external beam radiation completed November 2021 [facility] radiation oncology with 6 month hormones Treatment - Initial therapy - EXBRT [facility] completed 11/23 with adjuvant hormones ? Prostate cancer was diagnosed?Dr Smith 06/20 rising PSA? Diagnosis was reached by?06/20 , needle biopsy, for elevated PSA, PSA at diagnosis 5.5, , size at TRUS 45gm.? The [place] grade is?June 2019 - LMB, 3+3 = 6 30%, LMM , 3+3 = 6 30%, LLA , 3+3 = 6 5%, RMM, 3+3 = 6 10%, Total volume .? TNM Classification of Malignant Tumours (TNM)?T1c.? The [place] (NCCN) risk category is?Low Risk (PSA< 10, Gl < 7, T1c) ?Group 1 with ultralow risk volume Repeat biopsy June 2021 Histologic type: Adenocarcinoma, acinar type Histologic grade: [place] score: 4+3=7 (left base medial, right apex lateral, right apex medial), 3+4=7 (left mid medial), 3+3=6 (right base lateral, right base medial, right mid lateral, right mid medial) ? % of pattern 4: 15% of the tumor - 140/1200 Grade group: 1, 2, 3 and 4 Imaging staging. 08/22 MRI left base 1.5 cm PiRADS 5 - 08/23 PET-CT PSMA - left base prostate uptake otherwise negative [facility] Medical History (Updated 12/20/24 @ 10:52 by Javid Smith MD) Rising PSA following treatment for malignant neoplasm of prostate Prostate cancer Anxiety Snores COVID-19 vaccine series completed Elevated cholesterol Alopecia totalis Benign prostatic hyperplasia without lower urinary tract symptoms Elevated PSA Hypertension Surgical History History of total left knee replacement H/O colonoscopy Hx of prostate biopsy Social History Are you a primary medical care administrator to a significant other at home: No Do you presently have visiting nurse or other home services: No Patient Tobacco Use Status: Former Tobacco user Tobacco use type: Cigarette Years Smoked: 10 Advance Directives Date on File: 09/23/21 Review of Systems Const All systems reviewed & are unremarkable except as noted in HPI and below Reports no additional complaints Resp Reports no additional complaints GI Reports no additional complaints Reports as per HPI Musc Reports no additional complaints Physical Exam Telemedicine evaluation Appropriate responses Regular breathing rate and rhythm HEENT Head: Yes normal to inspection Ears: hearing grossly normal bilaterally Eyes General: appearance normal, both eyes and all related structures Neck Neck: Yes normal visual inspection Chest Chest palpation & inspection: normal inspection of the chest Resp Effort & Inspection: normal respiratory effort and able to speak in complete sentences Telehealth Telehealth [facility]health [facility] Location of provider rendering services: practice address Location of patient: address on file Patient Identification confirmed using: Name, : Yes Telehealth method: video Patient verbally consented to treatment: Yes Patient verbally consented to billing insurance company: Yes Patient informed of any privacy concerns related to visit: Yes Minutes spent on Phone/Video with Pt.: 15 Assessment & Plan Assessment & Plan (1) Prostate cancer: Comment: Artemio 4 + 3 external beam radiation with 6 month hormones completed November 2021 Code(s): C61 - Malignant neoplasm of prostate Category: Medical Plan Six-month follow-up PSA office Orders: Orders Prostate Specific Antigen 6 Months C61 - Malignant neoplasm of prostate Patient Instructions: This note is constructed using voice recognition software. While every effort has been made to ensure accuracy stitchdown thread laster errors may have been included. Imaging studies, laboratory and physical exam results were discussed and reviewed in detail. No major barriers to patient understanding were identified. An opportunity to ask questions regarding the treatment plan was provided. All questions were answered. The patient expressed understanding and agreement with the above treatment plan. The patient is aware they should contact our office by phone for worsening of their current condition or the appearance of new urologic symptoms. Compliance is encouraged with any medications and followup testing that is ordered. It is a privilege to participate in the urologic care of your patient. If you have any questions or concerns regarding treatment for the above conditions, or other urologic issues, please do not hesitate to contact me. The office telephone contact is [phone]. Sincerely, Dr Javid Smith MD, HANNY [facility] - Urology Compassionate Specialist Care for the Genitourinary System Coding Level of Care Code Tele Est Pt Level 3 (55451) Complex EM visit Add On G2211 Diagnoses Prostate cancer C61
--- OUTSIDE RECORDS SUMMARY | 2025-06-20 11:29 | XMS_ITS | Clinical Summary ---
Author Organization [facility] Address [address] [place] [address] Care Team Providers Care Attorney General Name Role Phone Joana Negro MD Unavailable Jennie Flores RN Unavailable [phone] [facility] Un[facility] [phone] Harshad Espinoza MD Primary Care Provider [phone] Allergies Active Allergy Reactions Criticality Noted Date Comments Lisinopril Cough Low 08/25/2018 Medications citalopram (CeleXA) 20 MG tablet Take 1 tablet (20 mg total) by mouth daily. 5 06/21/2018 Active cholecalciferol (VITAMIN D3) 1000 units tablet Take 1 tablet (1,000 Units total) by mouth daily. Active cetirizine (ZyrTEC) 10 MG tablet Take 1 tablet (10 mg total) by mouth daily. Active aspirin enteric coated (ECOTRIN LOW STRENGTH) 81 MG EC tablet Take 1 tablet (81 mg total) by mouth daily. Active finasteride (PROSCAR) 5 MG tablet Take 1 tablet (5 mg total) by mouth daily. Active irbesartan (AVAPRO) 300 MG tablet Take 1 tablet (300 mg total) by mouth daily. Active metoPROLOL TARTRATE (LOPRESSOR) 100 MG tablet Take 1 tablet (100 mg total) by mouth 2 (two) times a day. Active atorvastatin (LIPITOR) 10 MG tablet Take 1 tablet (10 mg total) by mouth daily. 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 Discussed the importance of both weight loss and the need for complete sobriety. I am reassured that Fibrosis has likely not progressed since 2018. Discussed the fat in the liver can cause acceleration of disease and progress to cirrhosis. Would check FIB4 through PCP every year. Continue to monitor LFT's annually. Continue aggressive management of metabolic syndrome. Would benefit from [id number] he is still trying to access. Discussed the role of liver biopsy though at this point I do not think the small risks would warrant one. Received vaccination to HBV. MASLD increase CV risk. Would not use resmetiron May consider adding naltrexone to curb alcohol use. Goal is to lose at least 10# then obtain repeat LFT's and CBC to estimate FIB4- this should be checked annually. Discussed that with modest weight loss of 5% steatosis can improve and with 10% weight loss fibrosis can begin to regress. Repeat Fibroscan every 1-2 years. Assessment & Plan (08/24/2023 11:32 AM EDT): MASLD without evidence of advanced liver disease. Will repeat Fibroscan in 2024. May check ELF next visit. Discussed the need for weight loss to reduce the risk of progression of liver disease and may consider using semaglutide to help with glucose control and weight loss. At this time there is no pharmacologic treatment for fatty liver disease. Needs to stop all alcohol use. Continue to check LFT's every 6-12 months. Will need to check for immunity to HBV with next labs in November. Discussed the role of liver biopsy but at this point will hold off as there is not enough evidence for advanced liver disease. Assessment & Plan (08/25/2022 8:28 AM EDT): Likely due to a combination of NAFLD and WILFRED. Discussed the benefits of complete sobriety and maintaining weight loss to reduce the risk of progression of liver disease. Reassured that Fibroscan showed improved stiffness. Will repeat Fibroscan in 3-5 years. Continue to monitor LFT's annually which can be done through PCP. Discussed benefits of HBV vaccination. Immune to HAV. Continue statin and BP mediations. 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 Non-invasive testing has shown likely advanced disease. I would like to update this. He will stop all alcohol for at least a month and lose 5#. Will repeat LFT's and CBC in 1 month. Have repeat Fibroscan in May 2022. If NAFLD score Fibroscan or APRI still concerning for advanced disease then will preform a liver biopsy. Autoimmune, ceruloplasmin, A1AT, and iron studies were negative. Assessment & Plan (02/20/2020 11:27 AM EDT): Discussed the need to lose weight to reduce the risk of progressing to cirrhosis and decompensated liver disease. I will check LFTs in the next few months and if they persist to be elevated then will send for liver biopsy to confirm diagnosis of fatty liver disease as well as confirmed the degree of fibrosis. The risk benefits and alternatives to liver biopsy were discussed including the risk of bleeding perforation and diagnostic error. Ideally he would lose 30 pounds which would be about 10% of his body weight which would decrease fibrosis as well as steatosis. I would have him abstain from all alcohol as there is been no safe quantity of alcohol in the setting of liver disease. May be able to quality for obetachoic acid for JAMES once approved. Would have CBC and INR checked as well in anticipation of liver biopsy. I will ask PCP to perform theses. Assessment & Plan (08/11/2019 3:19 PM EDT): Discussed the role of liver biopsy to confirm the diagnosis of JAMES and confirm the degree of fibrosis. Needs to lose weight to prevent progression of liver disease. Good liver function. Needs to abstain from all alcohol. His Fibroscan may have overestimated degree of fibrosis due to active alcohol ingestion. If he does have cirrhosis then would need semiannual surveillance of HCC. US was without ascites. Will lose weight in 6 months 30# Assessment & Plan (12/06/2018 2:55 PM EST): Elevated LFT's with Fibroscan concerning for advanced fibrosis. NAFLD score - 1.38 and APRI 0.88 both in the intermediate range. Discussed the need for weight loss through diet and exercise. Will also need to cut all alcohol consumption to fewer than 1 drink a day. Will follow-up in 6 months and have a goal weight loss of 30# (200). If LFT's do not improve and/or Fibroscan remains elevated then will likely perform liver biopsy to determine both etiology as well as degree of fibrosis. Will likely need US in the next 6-12 months. Immunizations Immunization Administration Dates Next Due Hepatitis B Adjuvanted, 2 Dose 09/30/2022,2021 Family History Medical History Relation Name Comments Hypertension Brother 1 Heart attack Brother 2 No Known Problems Daughter Liver disease Father Brain tumor Mother Colon cancer Paternal Uncle No Known Problems Son Relation Name Status Comments Brother 1 Alive Brother 2 Alive Daughter Alive Father Mother Paternal Uncle Son Alive Social History Tobacco Use Types Packs/Day Years Used Date Smoking Tobacco: Former Smokeless Tobacco: Never Tobacco Cessation:Counseling Given: Not Answered Alcohol Use Standard Drinks/Week Comments Yes 3 (1 standard drink = 0.6 oz pur e alcohol) daily ETOH, 3-4 shots Sex and Gender Information Value Date Recorded Sex Assigned at Male 08/11/2024 10:06 AM EDT Legal Sex Male 9:35 AM EDT Gender Identity Male 08/11/2024 10:06 AM EDT Sexual Orientation Heterosexual (straight) 08/11 10:06 AM EDT Last Filed Vital Signs Vital Sign Reading Time Taken Comments Blood Pressure 140/80 08/15/2024 1:13 PM EDT Pulse 93 08/15/2024 1:13 PM EDT Temperature 35.6 C (96.1 F) 08/15/2024 1:13 PM EDT Respiratory Rate - - Oxygen Saturation 95% 08/15/2024 1:13 PM EDT Inhaled Oxygen Concentration - - Weight 115 kg (254 lb) 08/15/2024 1:13 PM EDT Height 167.6 cm (5' 5.98 ) 08/15/2024 1:13 PM ED T Body Mass Index 41.02 08/15/2024 1:13 PM EDT Plan of Treatment Health Maintenance Due Date Last Done Comments Hepatitis C Virus Screening 1950 DTaP/Tdap/Td Vaccines (1 - Tdap) 1971 Colonoscopy 1997 Pneumococcal Vaccines 50+ (1 of 1 - PCV) 2002 Zoster (Shingles) Vaccine (1 of 2) 2002 RSV Vaccine 60 years and old er and Patients (1 - Risk 60-74 years 1-dose series) 2012 Abdominal Aortic Aneurysm (A AA) Screening 2017 COVID-19 Vaccine (5 - 2023-2 5 season) 2024 08/30/2023, 10/13/2021, 01/24/2021, Additional history exists Influenza Vaccine 06/02/2025 08/30/2023, , 08/18/2021, Additional history exists Hepatitis B Vaccines Completed 09/30/2022, 08/25/20 Insurance MEDICARE PART A & B [facility] Care Teams Attorney General Relationship Specialty Start Date End Date Harshad Espinoza MD [address] [place] [address] PCP - General Internal Medicine 04/07/22 Joana Negro MD [address] [place] [address] [address] [place] [address] 08/25/18 Jennie Flores RN [address] [place] [address] Registered Nurse 09/09/18 [facility] [address] [address] Hepatology 09/09/18
--- OUTSIDE RECORDS SUMMARY | 2025-06-20 11:29 | XMS_ITS ---
Author Name [facility] Organization Unknown History of Medication Use Medication Directions Dispensed Refills Start Date End Date Stat us atorvastatin (LIPITOR) 10 MG tablet Take 1 tablet (10 mg total) by mouth. 02/19/2022 08/24/2023 aborted metoPROLOL SUCCINATE (TOPROL-XL) 100 MG 24 hr tablet Take 1 tablet (100 mg total) by mouth. 01/06/2022 08/24/2023 aborted finasteride (PROSCAR) 5 MG tablet Take 5 mg by mouth daily. active irbesartan (AVAPRO) 300 MG tablet Take 300 mg by mouth daily. active metoPROLOL TARTRATE (LOPRESSOR) 100 MG tablet Take 100 mg by mouth 2 (two) times a day. active Allergies Allergen Reaction Severity Comment Documented Date Source Statu s LISINOPRIL COUGH 08/25/2018 [facility] active Problems Problem Status Onset Date Problem Type Date of Resoluti on Source Elevated LFTs active 2018-12-06 ProblemAct [facility] T Immunizations Vaccine Date Source Lot Number Status Hepatitis B Adjuvanted, 2 Dose 09/30/2022 [facility] [id number] completed Hepatitis B Adjuvanted, 2 Dose 08/25/2022 [facility] [id number] 0 completed Encounters Encounter Type Encounter Reason Primary Diagnosis Location Date Ambulatory Other specified abnormal findings of blood chemistry Other specified abnormal findings of blood chemistry [facility] 08/15/2024 Ambulatory Other specified abnormal findings of blood chemistry Other specified abnormal findings of blood chemistry [facility] 08/24/2023 Ambulatory Other specified abnormal findings of blood chemistry [facility] 09/30/2022 Ambulatory Other specified abnormal findings of blood chemistry [facility] 08/25/2022 Ambulatory Other specified abnormal findings of blood chemistry [facility] 05/13/2022 Ambulatory Other specified abnormal findings of blood chemistry [facility] 04/07/2022 Care Team Organization Name Specialty Phone Email Start Date End Da te [facility] LINDA MEREDITH Primary Care 09/30/2022 01/18/2025 [facility] FLEX WILDE Primary Care 04/07/2022 09/30/2022 [facility] Harshad Meredith Primary Care 04/07/2022 08/25/2022
== END 2025-06-20 11:25 | disposition home or self-care (01) ==
LOC: HO.HUSH 10:13
PROVIDERS: PCP Internal Medicine; Visit Provider Urology
DX: C61 Malignant neoplasm of prostate (principal)
CPT/HCPCS: 99213; G2211